=== PATIENT | female | born 1995 | race Two or more races ===

== ENCOUNTER 2019-09-09 20:07 | Emergency (ER) | payer SELFPAY ==
[~2019-09-09] VITALS: Ht 154.9 cm; Wt 56.8 kg
[2019-09-09] MEDS ORDERED: BENZ1TAB10 PO (20:37)
[2019-09-09] MEDS ORDERED: CITA10TA68 PO (20:37)
[2019-09-09 20:50] LABS: BASOPHILS % (AUTO) 0.2 % (0.0-2.0); EOSINOPHILS % (AUTO) 0.4 % (1.0-6.0); HEMATOCRIT 37.8 % (36-46); HEMOGLOBIN 12.6 g/dL (12.0-16.0); LYMPHOCYTES # (AUTO) 2.3 K/uL (1.0-4.8); LYMPHOCYTES % (AUTO) 28.2 % (22.0-44.0); MEAN CORPUSCULAR HEMOGLOBIN 29.1 pg (26.0-34.0); MEAN CORPUSCULAR HGB CONC 33.4 G/dL (31.0-37.0); MEAN CORPUSCULAR VOLUME 87 fL (80-100); MONOCYTES # (AUTO) 0.7 K/uL (0.1-1.0); MONOCYTES % (AUTO) 8.5 % (2.0-9.0); NEUTROPHILS # (AUTO) 5.1 K/uL (1.8-7.7); NEUTROPHILS % (AUTO) 62.7 % (40.0-70.0); PLATELET COUNT (AUTO) 306 K/uL (150-450); RED BLOOD CELL COUNT(AUTO) 4.34 MIL/uL (4.00-5.20); RED CELL DISTRIBUTION WIDTH 13.2 % (11.5-14.5)
[2019-09-09 21:04] LABS: ANION GAP 14 mmol/L (8-16); CALCIUM, TOTAL 9.4 mg/dL (8.8-10.5); CARBON DIOXIDE 24 mmol/L (22-29); CHLORIDE 102 mmol/L (98-107); CREATININE 0.59 mg/dL (0.60-1.30); GLOMERULAR FILTR. RATE CALC > 60 mL/min (>60); GLUCOSE,RANDOM 91 mg/dL (70-110); POTASSIUM 3.2 mmol/L (3.5-5.1); SODIUM SERUM 140 mmol/L (136-145); UREA NITROGEN, BLOOD 5 mg/dL (7-18)
[2019-09-09 21:06] LABS: ALANINE AMINOTRANSFERASE 15 U/L (12-78); ALBUMIN 3.7 g/dL (3.4-5.0); ALKALINE PHOSPHATASE 89 U/L (46-116); ASPARTATE AMINOTRANSFERASE 14 U/L (15-37); BILIRUBIN,TOTAL 0.2 mg/dL (0.1-1.0); TOTAL PROTEIN, SERUM 7.9 g/dL (6.4-8.2)
[2019-09-09 21:45] VITALS: BP 124/71
== END 2019-09-09 23:00 | disposition home or self-care (01) ==
LOC: EMS 20:08
DX: R45.851 Suicidal ideations (principal); F17.210 Nicotine dependence, cigarettes, uncomplicated; Z88.0 Allergy status to penicillin
CPT/HCPCS: 80053; 85025; 99285; G0480

== ENCOUNTER 2019-12-19 13:19 | Emergency (ER) | payer MEDICARE, OTHER ==
[~2019-12-19] VITALS: Ht 154.9 cm; Wt 50.0 kg
[~2019-12-19 13:19] MED LIST: BENZ1TAB10 PO; CITA10TA99 PO
[2019-12-19] MEDS ORDERED: RISP1TAB27 PO (13:45)
[2019-12-19 14:19] LABS: BASOPHILS % (AUTO) 0.2 % (0.0-2.0); EOSINOPHILS % (AUTO) 0.6 % (1.0-6.0); HEMATOCRIT 36.1 % (36-46); HEMOGLOBIN 12.1 g/dL (12.0-16.0); LYMPHOCYTES # (AUTO) 1.1 K/uL (1.0-4.8); LYMPHOCYTES % (AUTO) 13.2 % (22.0-44.0); MEAN CORPUSCULAR HEMOGLOBIN 28.6 pg (26.0-34.0); MEAN CORPUSCULAR HGB CONC 33.4 G/dL (31.0-37.0); MEAN CORPUSCULAR VOLUME 86 fL (80-100); MONOCYTES # (AUTO) 0.6 K/uL (0.1-1.0); MONOCYTES % (AUTO) 7.5 % (2.0-9.0); NEUTROPHILS # (AUTO) 6.7 K/uL (1.8-7.7); NEUTROPHILS % (AUTO) 78.5 % (40.0-70.0); PLATELET COUNT (AUTO) 325 K/uL (150-450); RED BLOOD CELL COUNT(AUTO) 4.22 MIL/uL (4.00-5.20); RED CELL DISTRIBUTION WIDTH 13.6 % (11.5-14.5)
[2019-12-19 14:37] LABS: ANION GAP 9 mmol/L (8-16); CALCIUM, TOTAL 9.6 mg/dL (8.8-10.5); CARBON DIOXIDE 27 mmol/L (22-29); CHLORIDE 106 mmol/L (98-107); CREATININE 0.64 mg/dL (0.60-1.30); GLOMERULAR FILTR. RATE CALC > 60 mL/min (>60); GLUCOSE,RANDOM 102 mg/dL (70-110); POTASSIUM 4.1 mmol/L (3.5-5.1); SODIUM SERUM 142 mmol/L (136-145); UREA NITROGEN, BLOOD 8 mg/dL (7-18)
[2019-12-19 14:43] LABS: ALANINE AMINOTRANSFERASE 16 U/L (12-78); ALBUMIN 3.5 g/dL (3.4-5.0); ALKALINE PHOSPHATASE 88 U/L (46-116); ASPARTATE AMINOTRANSFERASE 16 U/L (15-37); BILIRUBIN,TOTAL 0.2 mg/dL (0.1-1.0); TOTAL PROTEIN, SERUM 8.2 g/dL (6.4-8.2)
[2019-12-19 15:41] LABS: AMPHET/METH SCREEN,URINE NEGATIVE (NEGATIVE); BARBITURATE SCREEN, URINE NEGATIVE (NEGATIVE); BENZODIAZEPINES SCREEN,URINE NEGATIVE (NEGATIVE); CANNABINOID SCREEN,URINE NEGATIVE (NEGATIVE); COCAINE SCREEN,URINE NEGATIVE (NEGATIVE); METHADONE SCREEN, URINE NEGATIVE (NEGATIVE); OPIATE SCREEN,URINE NEGATIVE (NEGATIVE); PHENCYCLIDINE SCREEN,URINE NEGATIVE (NEGATIVE)
[2019-12-19 15:53] VITALS: BP 117/81
== END 2019-12-19 17:56 | disposition home or self-care (01) ==
LOC: EMS 13:19
DX: F20.9 Schizophrenia, unspecified (principal); F17.210 Nicotine dependence, cigarettes, uncomplicated; Z88.0 Allergy status to penicillin
CPT/HCPCS: 36415; 80053; 80307; 85025; 99285; G0480

== ENCOUNTER 2021-06-18 11:40 | Emergency (ER) | payer MEDICARE, OTHER ==
[~2021-06-18] VITALS: Ht 147.3 cm; Wt 43.2 kg
[~2021-06-18 11:40] MED LIST changes: -CITA10TA99 PO; +RISP1TAB48 PO
[2021-06-18] MEDS ORDERED: RisperiDONE 1 MG TABLET PO ONE (12:30)
[2021-06-18] MEDS ORDERED: LORazepam 1 MG TABLET PO ONE (13:00)
[2021-06-18 13:27] LABS: COVID AG,FIA SOURCE NASOPHARYNGEAL
[2021-06-18 18:32] VITALS: BP 108/68
== END 2021-06-18 18:49 | disposition home or self-care (01) ==
LOC: EMS 11:55
DX: R45.1 Restlessness and agitation (principal); F20.9 Schizophrenia, unspecified; F17.210 Nicotine dependence, cigarettes, uncomplicated; Z20.822 Contact with and (suspected) exposure to COVID-19; Z88.0 Allergy status to penicillin; Z79.899 Other long term (current) drug therapy
CPT/HCPCS: 99285

== ENCOUNTER 2021-07-15 18:17 | Emergency (ER) | payer MEDICARE, OTHER ==
[~2021-07-15] VITALS: Ht 160 cm; Wt 52.3 kg
[2021-07-15 18:21] VITALS: BP 119/76
[2021-07-15] MEDS ORDERED: QUEtiapine FUMARATE 25 MG TABLET PO ONE (19:45)
== END 2021-07-15 20:46 | disposition home or self-care (01) ==
LOC: EMS 18:21
DX: R44.0 Auditory hallucinations (principal); R44.1 Visual hallucinations; F31.9 Bipolar disorder, unspecified; F17.210 Nicotine dependence, cigarettes, uncomplicated; Z88.0 Allergy status to penicillin
CPT/HCPCS: 99284

== ENCOUNTER 2021-07-21 12:40 | Outpatient (CLI) | payer MEDICARE, OTHER ==
[2021-07-21 15:46] VITALS: BP 98/67
[2021-07-21 15:48] VITALS: BP 98/67
[2021-07-21 16:10] LABS: GLUCOMETER DEV NAME(LOC) POC.BV
[2021-07-21] MEDS ORDERED: RisperiDONE 4 MG TABLET PO SCH (21:00)
[2021-07-21] MEDS ORDERED: BENZTROPINE MESYLATE 0.5 MG TABLET PO SCH (21:00)
[2021-07-22] MEDS ORDERED: CITALOPRAM HYDROBROMIDE 20 MG TABLET PO SCH (09:00)
== END 2021-07-21 18:00 | disposition short-term general hospital (02) ==
LOC: CSU 12:40
PROVIDERS: ATTEND Psychiatry & Neurology Psychiatry
DX: F29 Unspecified psychosis not due to a substance or known physiological condition (principal); Z20.822 Contact with and (suspected) exposure to COVID-19; Z88.0 Allergy status to penicillin
CPT/HCPCS: 90792

== ENCOUNTER 2021-07-21 18:27 | Inpatient (IN) | payer MEDICARE, MEDICAID ==
[~2021-07-21] VITALS: Ht 147.3 cm; Wt 48.1 kg
[2021-07-21 19:37] LABS: COVID AG,FIA SOURCE NASOPHARYNGEAL
[2021-07-21] MEDS ORDERED: LORazepam 1 MG TABLET PO ONE (20:30)
[2021-07-21] MEDS ORDERED: RisperiDONE 1 MG TABLET PO ONE (20:30)
[2021-07-21] MEDS ORDERED: HALOPERIDOL 5 MG TABLET PO PRN (21:45)
[2021-07-21] MEDS ORDERED: LORazepam 2 MG TABLET PO PRN (21:45)
[2021-07-22] MEDS: ZOLPIDEM TARTRATE 10 MG TABLET PO PRN (02:54)
[2021-07-22 03:43] VITALS: BP 94/86
[2021-07-22] MEDS ORDERED: MAG HYDROX/AL HYDROX/SIMETH ES 30 ML SUSPENSION UDCUP PO PRN (05:45)
[2021-07-22] MEDS ORDERED: DOCUSATE SODIUM 100 MG CAPSULE PO PRN (05:45)
[2021-07-22] MEDS ORDERED: IBUPROFEN 600 MG TABLET PO PRN (05:45)
[2021-07-22] MEDS ORDERED: LOPERAMIDE HCL 2 MG CAPSULE PO PRN (05:45)
[2021-07-22] MEDS ORDERED: CloNIDine HCL 0.1 MG TABLET PO PRN (05:45)
[2021-07-22] MEDS ORDERED: BACITRACIN 28 GM OINTMENT TP PRN (05:45)
[2021-07-22] MEDS ORDERED: PETROLATUM,WHITE 28 GM JELLY TP PRN (05:45)
[2021-07-22] MEDS ORDERED: OMEPRAZOLE 20 MG CAPSULE PO PRN (05:45)
[2021-07-22] MEDS ORDERED: MAGNESIUM HYDROXIDE SUSPENSION 30 ML UDCUP PO PRN (05:45)
[2021-07-22] MEDS ORDERED: ACETAMINOPHEN 325 MG TABLET PO PRN (05:45)
[2021-07-22] MEDS ORDERED: ALBUTEROL SULFATE HFA 90 MCG/PUFF 8 GM INHALER IH PRN (05:45)
[2021-07-22] MEDS ORDERED: BENZOCAINE/MENTHOL LOZENGE PO PRN (05:45)
[2021-07-22] MEDS ORDERED: ONDANSETRON HCL 4 MG TABLET PO PRN (05:45)
[2021-07-22 08:00] VITALS: BP 134/75
[2021-07-22 16:45] VITALS: BP 103/80
[2021-07-22] MEDS: RisperiDONE 2 MG TABLET PO SCH (16:47)
[2021-07-22] MEDS: DIVALPROEX SODIUM 500 MG DR TABLET PO SCH (16:47)
[2021-07-22] MEDS: BENZTROPINE MESYLATE 1 MG TABLET PO SCH (16:47)
[2021-07-23 07:00] VITALS: BP 107/76
[2021-07-23] MEDS: DIVALPROEX SODIUM 500 MG DR TABLET PO SCH ×2 (08:38→16:22)
[2021-07-23] MEDS: BENZTROPINE MESYLATE 1 MG TABLET PO SCH ×2 (08:38→16:22)
[2021-07-23] MEDS: RisperiDONE 2 MG TABLET PO SCH ×2 (08:38→16:22)
[2021-07-23 09:07] VITALS: BP 112/62
[2021-07-23 16:02] VITALS: BP 100/67
[2021-07-24 06:22] VITALS: BP 100/58
[2021-07-24 07:25] LABS: APPEARANCE,URINE CLEAR (CLEAR); BILIRUBIN,URINE NEGATIVE (NEGATIVE); GLUCOSE, URINE (UA) NEGATIVE (NEGATIVE); KETONES,URINE TRACE mg/dL (NEGATIVE); LEUKOCYTE ESTERASE ,URINE NEGATIVE (NEGATIVE); NITRATE,URINE NEGATIVE (NEGATIVE); OCCULT BLOOD,URINE TRACE (NEGATIVE); PROTEIN,URINE NEGATIVE (NEGATIVE); UROBILINOGEN,URINE 0.2 mg/dL (<=1.0)
[2021-07-24 07:30] LABS: AMPHET/METH SCREEN,URINE NEGATIVE (NEGATIVE); BARBITURATE SCREEN, URINE NEGATIVE (NEGATIVE); BENZODIAZEPINES SCREEN,URINE NEGATIVE (NEGATIVE); CANNABINOID SCREEN,URINE NEGATIVE (NEGATIVE); COCAINE SCREEN,URINE NEGATIVE (NEGATIVE); METHADONE SCREEN, URINE NEGATIVE (NEGATIVE); OPIATE SCREEN,URINE NEGATIVE (NEGATIVE); PHENCYCLIDINE SCREEN,URINE NEGATIVE (NEGATIVE)
[2021-07-24 07:37] LABS: BACTERIA,URINE None Seen /HPF (None Seen); RBC,URINE 0-2 /HPF (0-2); WBC,URINE None Seen /HPF (0-5)
[2021-07-24 08:09] VITALS: BP 102/60
[2021-07-24] MEDS: DIVALPROEX SODIUM 500 MG DR TABLET PO SCH ×2 (08:36→16:39)
[2021-07-24] MEDS: RisperiDONE 2 MG TABLET PO SCH ×2 (08:37→16:39)
[2021-07-24] MEDS: BENZTROPINE MESYLATE 1 MG TABLET PO SCH ×2 (08:37→16:39)
[2021-07-24 16:15] VITALS: BP 96/57
[2021-07-24 16:38] VITALS: BP 104/71
[2021-07-25] MEDS: ZOLPIDEM TARTRATE 10 MG TABLET PO PRN (00:31)
[2021-07-25 04:35] VITALS: BP 100/64
[2021-07-25 08:06] VITALS: BP 80/60
[2021-07-25] MEDS: BENZTROPINE MESYLATE 1 MG TABLET PO SCH ×2 (08:36→15:35)
[2021-07-25] MEDS: RisperiDONE 2 MG TABLET PO SCH ×2 (08:36→15:35)
[2021-07-25] MEDS: DIVALPROEX SODIUM 500 MG DR TABLET PO SCH ×2 (08:37→15:35)
[2021-07-25 16:01] VITALS: BP 101/61
[2021-07-26 08:16] VITALS: BP 125/88
[2021-07-26] MEDS: BENZTROPINE MESYLATE 1 MG TABLET PO SCH ×2 (08:17→16:31)
[2021-07-26] MEDS: DIVALPROEX SODIUM 500 MG DR TABLET PO SCH ×2 (08:18→16:31)
[2021-07-26] MEDS: RisperiDONE 2 MG TABLET PO SCH ×2 (08:18→16:31)
[2021-07-26 16:02] VITALS: BP 107/65
[2021-07-27 00:02] VITALS: BP 126/70
[2021-07-27 08:26] LABS: GLUCOMETER DEV NAME(LOC) POC.BV
[2021-07-27] MEDS: RisperiDONE 2 MG TABLET PO SCH ×2 (08:56→16:19)
[2021-07-27] MEDS: BENZTROPINE MESYLATE 1 MG TABLET PO SCH ×2 (08:56→16:18)
[2021-07-27] MEDS: DIVALPROEX SODIUM 500 MG DR TABLET PO SCH ×2 (08:56→16:18)
[2021-07-27 12:16] VITALS: BP 100/60
[2021-07-27] MEDS ORDERED: RISP2TAB86 PO (13:13)
[2021-07-27] MEDS ORDERED: DIVA-112 PO (13:13)
[2021-07-27] MEDS ORDERED: BENZ1TAB10 PO (13:13)
[2021-07-27 16:01] VITALS: BP 109/58
== END 2021-07-27 23:03 | disposition home or self-care (01) | DRG 885 ==
LOC: EMS 18:38 → B2X 07-22 00:30
PROVIDERS: ADMIT Psychiatry & Neurology Psychiatry; ATTEND Psychiatry & Neurology Psychiatry
DX: F25.9 Schizoaffective disorder, unspecified (principal); G47.00 Insomnia, unspecified; K59.00 Constipation, unspecified; Z20.822 Contact with and (suspected) exposure to COVID-19; F17.210 Nicotine dependence, cigarettes, uncomplicated; F41.9 Anxiety disorder, unspecified; Q96.9 Turner's syndrome, unspecified; Z88.0 Allergy status to penicillin
CPT/HCPCS: 81001; 90792; 99285

== ENCOUNTER 2022-06-09 11:37 | Emergency (ER) | payer MEDICARE, MEDICAID ==
[~2022-06-09] VITALS: Ht 157.5 cm; Wt 59.1 kg
[~2022-06-09 11:37] MED LIST changes: -BENZ1TAB10 PO; +BENZ1TAB96 PO; +DIVA-112 PO; +RISP2TAB86 PO
[2022-06-09] MEDS ORDERED: HALOPERIDOL 5 MG TABLET PO ONE (12:45)
[2022-06-09 13:05] VITALS: BP 109/77
[2022-06-09 13:24] LABS: COVID AG,FIA SOURCE NASOPHARYNGEAL
[2022-06-14] MEDS ORDERED: RISPC50 IM (15:18)
== END 2022-06-09 18:06 | disposition home or self-care (01) ==
LOC: EMS 11:44
DX: F25.9 Schizoaffective disorder, unspecified (principal); F31.9 Bipolar disorder, unspecified; Z88.0 Allergy status to penicillin; Z91.14 Patient's other noncompliance with medication regimen; Z20.822 Contact with and (suspected) exposure to COVID-19
CPT/HCPCS: 99285